=== PATIENT | female | born 1985 | race Caucasian/White ===

== ENCOUNTER 2025-06-30 13:37 | Emergency (ER) | payer SELFPAY ==
[2025-06-30] MEDS ORDERED: Dexamethasone 10 MG/ML VIAL ONE (15:09)
== END 2025-06-30 15:12 | disposition home or self-care (01) ==
LOC: ERS 13:37
DX: B34.9 Viral infection, unspecified (principal); I10 Essential (primary) hypertension
CPT/HCPCS: 87428; 96372; 99283; J1100

== ENCOUNTER 2025-07-13 10:00 | Emergency (ER) | payer SELFPAY ==
[2025-07-13] MEDS ORDERED: Ketorolac Tromethamine 30 MG (1 mL) VIAL ONE (10:24)
== END 2025-07-13 10:35 | disposition home or self-care (01) ==
LOC: ERS 10:00
DX: M54.6 Pain in thoracic spine (principal); M62.830 Muscle spasm of back; I10 Essential (primary) hypertension
CPT/HCPCS: 96372; 99282; J1885